=== PATIENT | female | born 1950 | race Two or more races ===

== ENCOUNTER 2018-05-21 15:15 | Emergency (ER) | payer MEDICARE, OTHER ==
[2018-05-21] MEDS ORDERED: ASPIRIN 325 MG TABLET PO ONE (15:48)
--- NOTE | 2018-05-21 15:49 | ER Document Report ---
ED Medical Screen (RME) - General Chief Complaint: High Blood Pressure Stated Complaint: BLOOD PRESSURE ISSUE Time Seen by Provider: 05/21/18 15:47 Mode of Arrival: Ambulatory Information source: Patient TRAVEL OUTSIDE OF THE [place] IN LAST 30 DAYS: No - HPI Patient complains to provider of: L arm pain; elevated BP Onset: This morning - pt. started with L arm pain and elevated BP earlier this am - Related Data Allergies/Adverse Reactions: Penicillins Allergy (Verified 05/21/18 15:29) Past Medical History - Past Medical History Cardiac Medical History: Reports: Hx Hypertension Endocrine Medical History: Reports: Hx Diabetes Mellitus Type 2 Renal/ Medical History: Denies: Hx Peritoneal Dialysis Past Surgical History: Reports: Hx Genitourinary Surgery - Bladder sling, Hx Neurologic Surgery - Back, Hx Orthopedic Surgery - Rt hip Physical Exam - Vital signs Vitals: Temp Pulse Resp BP Pulse Ox 97.8 F 66 15 190/72 H 98 05/21/18 15:32 05/21/18 15:32 05/21/18 15:32 05/21/18 15:32 05/21/18 15:32 Course - Vital Signs Vital signs: Temp Pulse Resp BP Pulse Ox 97.8 F 66 15 190/72 H 98 05/21/18 15:32 05/21/18 15:32 05/21/18 15:32 05/21/18 15:32 05/21/18 15:32
--- NOTE | 2018-05-21 16:17 | RADIOLOGY REPORT (SQ) ---
EXAM DESCRIPTION: CHEST 2 VIEWS COMPLETED DATE/TIME: 05/21/2018 4:09 pm REASON FOR STUDY: cp COMPARISON: None. EXAM PARAMETERS: NUMBER OF VIEWS: two views TECHNIQUE: Digital Frontal and Lateral radiographic views of the chest acquired. RADIATION DOSE: NA LIMITATIONS: none FINDINGS: LUNGS AND PLEURA: No opacities, masses or pneumothorax. No pleural effusion. MEDIASTINUM AND HILAR STRUCTURES: No masses or contour abnormalities. HEART AND VASCULAR STRUCTURES: Heart normal size. No evidence for failure. BONES: Lumbar scoliosis. HARDWARE: None in the chest. OTHER: No other significant finding. IMPRESSION: Scoliosis. No acute cardiopulmonary disease. TECHNICAL DOCUMENTATION: JOB ID: [id number] [employer]- All Rights Reserved Reading location - IP/workstation name: [email or web address]
[2018-05-21 17:08] LABS: ABSOLUTE EOSINOPHILS # (AUTO) 0.3 10^3/uL (0.0-0.6); ABSOLUTE LYMPHOCYTES (AUTO) 1.8 10^3/uL (0.5-4.7); ABSOLUTE MONOCYTES (AUTO) 0.6 10^3/uL (0.1-1.4); ABSOLUTE NEUT (AUTO) 4.5 10^3/uL (1.7-8.2); BASOPHILS % (AUTO) 0.6 % (0-2); EOSINOPHILS % (AUTO) 3.9 % (0-6); HEMATOCRIT 41.5 % (36.0-47.0); HEMOGLOBIN 14.2 g/dL (12.0-15.5); LYMPHOCYTES % (AUTO) 24.3 % (13-45); MEAN CORPUSCULAR HEMOGLOBIN 31.8 pg (27.0-33.4); MEAN CORPUSCULAR HGB CONC 34.3 g/dL (32.0-36.0); MEAN CORPUSCULAR VOLUME 93 fl (80-97); MONOCYTES % (AUTO) 8.9 % (3-13); PLATELET COUNT 345 10^3/uL (150-450); RED BLOOD COUNT 4.48 10^6/uL (3.72-5.28); RED CELL DISTRIBUTION WIDTH 13.2 % (11.5-14.0); SEGMENTED NEUTROPHILS % (AUTO) 62.3 % (42-78); TOTAL CELLS COUNTED % (AUTO) 100 %; WHITE BLOOD COUNT 7.3 10^3/uL (4.0-10.5)
[2018-05-21 17:21] LABS: ALANINE AMINOTRANSFERASE 22 U/L (9-52); ALBUMIN 4.7 g/dL (3.5-5.0); ALKALINE PHOSPHATASE 93 U/L (38-126); ANION GAP 13 (5-19); ASPARTATE AMINO TRANSFERASE 30 U/L (14-36); BILIRUBIN,DIRECT 0.2 mg/dL (0.0-0.4); BILIRUBIN,TOTAL 0.3 mg/dL (0.2-1.3); BLOOD UREA NITROGEN 14 mg/dL (7-20); CARBON DIOXIDE 30 mmol/L (22-30); CHLORIDE 100 mmol/L (98-107); CREATINE KINASE 142 U/L (30-135); GLUCOSE 128 mg/dL (75-110); POTASSIUM 4.1 mmol/L (3.6-5.0); SODIUM 142.6 mmol/L (137-145); TOTAL PROTEIN 7.8 g/dL (6.3-8.2)
[2018-05-21 17:31] LABS: CREATINE KINASE MB 2.17 ng/mL (<4.55); TROPONIN I < 0.012 ng/mL
[2018-05-21 18:11] VITALS: BP 148/77
[2018-05-21] MEDS ORDERED: METOPROLOL TARTRATE 25 MG TABLET PO ONE (18:12)
--- NOTE | 2018-05-21 18:20 | ER Document Report ---
ED Blood Pressure Problem - General Chief Complaint: High Blood Pressure Stated Complaint: BLOOD PRESSURE ISSUE Time Seen by Provider: 05/21/18 15:47 Mode of Arrival: Ambulatory Information source: Patient TRAVEL OUTSIDE OF THE [place] IN LAST 30 DAYS: No - HPI Patient complains to provider of: High blood pressure Onset: This morning Onset/Duration: Gradual Quality of pain: Pressure - SLIGHT, TRANSIENT Severity: Mild Problem is: New problem Associated symptoms: Chest pain - SEE ABOVE, Other - PARESTHESIA L. HAND. denies: Dizziness, Lightheaded, Nausea Similar symptoms previously: No Recently seen / treated by doctor: Yes - PRIOR TO TRAVELLING TO [place]. - Related Data Allergies/Adverse Reactions: Penicillins Allergy (Verified 05/21/18 15:29) Past Medical History - General Information source: Patient - Social History Smoking Status: Never Smoker Cigarette use (# per day): No Chew tobacco use (# tins/day): No Frequency of alcohol use: None Drug Abuse: None Lives with: Family - VISITING LOCALLY, FROM [place] Family History: None Patient has suicidal ideation: No Patient has homicidal ideation: No - Past Medical History Cardiac Medical History: Reports: Hx Hypertension Pulmonary Medical History: Reports: None EENT Medical History: Reports: None Neurological Medical History: Reports: None Endocrine Medical History: Reports: Hx Diabetes Mellitus Type 2 Renal/ Medical History: Reports: None. Denies: Hx Peritoneal Dialysis Malignancy Medical History: Reports: None GI Medical History: Reports: None Musculoskeletal Medical History: Reports None Psychiatric Medical History: Reports: None Past Surgical History: Reports: Hx Genitourinary Surgery - Bladder sling, Hx Neurologic Surgery - Back, Hx Orthopedic Surgery - Rt hip Review of Systems - Review of Systems Constitutional: No symptoms reported. denies: Diaphoresis, Weakness EENT: No symptoms reported Cardiovascular: See HPI Respiratory: See HPI Gastrointestinal: No symptoms reported Female Genitourinary: Post menopausal Musculoskeletal: No symptoms reported Skin: No symptoms reported Neurological/Psychological: See HPI Physical Exam - Vital signs Vitals: Temp Pulse Resp BP Pulse Ox 97.8 F 66 15 190/72 H 98 05/21/18 15:32 05/21/18 15:32 05/21/18 15:32 05/21/18 15:32 05/21/18 15:32 Interpretation: Hypertensive. No: Tachycardic, Tachypneic - General General appearance: Appears well, Alert In distress: None - HEENT Head: Normocephalic Eyes: Normal Conjunctiva: Normal Ears: Normal Nasal: Normal Mouth/Lips: Normal Mucous membranes: Normal - Respiratory Respiratory status: No respiratory distress Breath sounds: Normal - Cardiovascular Rhythm: Regular Heart sounds: Normal auscultation Murmur: No - Abdominal Inspection: Normal Distension: No distension - Extremities General upper extremity: Normal inspection General lower extremity: Normal inspection. No: Tender, Edema - Neurological Neuro grossly intact: Yes Cognition: Normal Orientation: AAOx4 - Psychological Associated symptoms: Normal affect, Normal mood - Skin Skin Temperature: Warm Skin Moisture: Dry Skin Color: Normal Skin Turgor: Elastic Course - Vital Signs Vital signs: Temp Pulse Resp BP Pulse Ox 97.8 F 66 15 148/77 H 100 05/21/18 15:32 05/21/18 15:32 05/21/18 15:32 05/21/18 18:01 05/21/18 18:01 - Laboratory Result Diagrams: 05/21/18 16:40 05/21/18 16:40 Laboratory results interpreted by me: 05/21/18 16:40 Glucose 128 H Creatine Kinase 142 H Discharge - Discharge Clinical Impression: Essential hypertension Condition: Stable Disposition: HOME, SELF-CARE Instructions: Beta Blockers ([facility]), Angiotensin Converting Enzyme Inhibitor Medication ([facility]) Additional Instructions: CONTINUE YOUR LISINOPRIL BEFORE. INCREASE YOUR METOPROLOL (TOPROL XL) TO 25 mg TWICE A DAY. FOLLOW UP WITH YOUR PRIMARY CARE PROVIDER WHEN YOU RETURN HOME. RETURN TO E.R. IF PROBLEMS. Prescriptions: Metoprolol Succinate [Toprol Xl 25 mg Tab.sr] 25 mg PO BID #15 tab.sr.24h
--- NOTE | 2018-05-22 00:02 | EKG REPORT ---
SEVERITY:- NORMAL ECG - SINUS RHYTHM : Confirmed by: Carisa Gerardo MD 22-May-2018 00:01:25
== END 2018-05-21 18:44 | disposition home or self-care (01) ==
LOC: ER 15:15
DX: I10 Essential (primary) hypertension (principal); R07.89 Other chest pain; R20.2 Paresthesia of skin; Z88.0 Allergy status to penicillin; E11.9 Type 2 diabetes mellitus without complications
CPT/HCPCS: 93005; 99284; 36415; 82553; 82550; 85025; 80053; 84484; 71046; 93010; A9270 ×2